=== PATIENT | male | born 1990 | race Caucasian/White ===

== ENCOUNTER 2020-12-11 12:48 | Emergency (ER) | payer OTHER, SELFPAY ==
[~2020-12-11] VITALS: Ht 160 cm; Wt 75.7 kg
[2020-12-11 12:59] VITALS: Ht 160 cm; Wt 75.7 kg
[2020-12-11 15:17] VITALS: BP 134/78
== END 2020-12-11 15:17 | disposition home or self-care (01) ==
LOC: ED 12:48
DX: U07.1 COVID-19 (principal); J12.82 Pneumonia due to coronavirus disease 2019
CPT/HCPCS: 36600